=== PATIENT | female | born 1990 | race Caucasian/White ===

== ENCOUNTER → 2018-02-09 19:13 | Observation (INO) ==
[2018-02-09 18:48] LABS: Amphetamine Screen,Urine Negative ng/mL (Cutoff=1000); Barbiturate Screen,Urine Negative ng/mL (Cutoff=200); Benzodiazepines Screen,Urine Negative ng/mL (Cutoff=200); Cannabinoid Screen,Urine Negative ng/mL (Cutoff = 50); Cocaine Screen,Urine Negative ng/mL (Cutoff= 300); Opiate Screen,Urine Negative ng/mL (Cutoff=300); Phencyclidine Screen,Urine Negative ng/mL (Cutoff=25)
--- NOTE | 2018-02-09 19:05 | OB/GYN Progress Note ---
Date of Encounter: 02/09/18 Time of Encounter: 19:03 - Assessment and Plan (1) 38 weeks gestation of Current Visit: Yes Status: Acute NST reactive (2) False labor Current Visit: Yes Status: Acute SVE . Repeat SVE unchanged. Discharge home with precautions. Subjective - Subjective Principal diagnosis: contractions Interval history: 27 year-old G1 presenting at 38w5d with c/o contractions. She denies LOF or heavy VB. She does report some spotting prior to her arrival to triage but she did have an SVE yesterday at her OB appt. Good FM. No other complaints. Objective - Vital Signs Vital Signs: Intake and Output 02/09/18 02/09/18 02/09/18 07:59 15:59 23:59 Other: Weight 87.5 kg Patient Weight 02/09/18 23:59 Weight 87.5 kg - Exam FHR: category 1 FHR comments: NST reactive Auscultation: bilateral: normal Abdomen: Present: soft, gravid Uterus: Absent: tenderness Cervical dilation: per RN, repeat unchanged
== END | disposition home or self-care (01) ==
LOC: 1NENULAB
PROVIDERS: ADMIT Registered Nurse; ATTEND Registered Nurse

== ENCOUNTER 2018-02-11 20:31 | Inpatient (IN) ==
[~2018-02-11 20:31] MED LIST: *HR* Nalbuphine 10 MG/ML AMPUL IVP PRN; Famotidine 20 MG/2 ML VIAL IVP PRN; Naloxone 0.4 MG/ML INJ IVP PRN; Ondansetron 4 MG/2 ML VIAL IVP PRN
[2018-02-11] MEDS ORDERED: Oxytocin 20 units/ LR 1000 mL 20 UNIT/1,000 ML BAG IVC SCH (20:45)
--- NOTE | 2018-02-11 20:52 | OB/GYN History & Physical ---
Date of Encounter: 02/11/18 Time of Encounter: 20:50 Assessment and Plan (1) 39 weeks gestation of Current visit: Yes Status: Acute (2) SROM (spontaneous rupture of membranes) Current visit: Yes Status: Acute Admit to labor and delivery Nubain and epidural as desired GBS negative If no cervical change in 2 hours start Pitocin per policy Anticipate History of Present Illness Chief complaint: SROM HPI: Ms. Duckworth is a 27 year old female 39+0 weeks gestation presents to triage with complaints of spontaneous rupture membranes at 1300. Patient states has been leaking clear fluid since rupture, reports good movement, denies vaginal bleeding, occasional contractions last checked labor 7 minutes apart. care with Dr[address] Kelley, uncomplicated course. Labs: O+, rubella and varicella immune, GBS negative, all other serologies negative Past Med Surg Social Fam HX - Past Medical History Medical history: no medical history Psychiatric history: no psych history - Past Surgical History Surgical History: no surgical history - Social History Smoking Status: Never smoker Alcohol use: none Drug use: none - Family History Mother Adopted: No Living Status: Still Living Hx Family Endocrine Disorder: Yes ("thyroid issues") Obstetrical History - Pregnancies : 1 Para: 0 Term: 0 : 0 Ab's: 0 Livin Medications and Allergies Vit Calc,Iron,Folic [ Vitamins] 1 tab PO DAILY 02/09/18 [ History] 3 Allergy/AdvReac Type Severity Reaction Status Date / Time No Known Allergies Allergy Verified 02/11/18 20:55 Exam - Constitutional Constitutional: well developed, well nourished, no acute distress, average body habitus - Neck Neck exam: full ROM - Lungs Respiratory exam: CTAB - Cardiovascular Cardiovascular exam: RRR - Abdomen Abdomen: Present: bowel sounds normal, gravid, non tender - Extremities Extremities exam: normal capillary refill, normal inspection - Vagina Vagina: Present: normal moisture - Cervix Dilation: 4 Effacement: 90 Station: -1 - Uterus Uterus exam: Present: normal size, normal contour - Anus/Rectum Anus/Rectum: Present: normal perianal skin Results Result Diagrams: 02/11/18 21:05 All other labs normal. - VTE Reasons for not Prescribing Prophylaxis: Treatment not Indicated - Low risk for VTE
[2018-02-11 21:41] LABS: Basophils % 0.3 %; Eosinophils # 0.1 K/mcL (0.0-0.6); Eosinophils % 1.2 %; Hematocrit 33.4 % (35.3-44.9); Hemoglobin 11.4 g/dL (11.5-15.4); Lymphocytes # 1.9 K/mcL (0.6-4.6); Lymphocytes % 18.5 %; Mean Corpuscular HGB Conc 34.1 g/dL (31.6-35.5); Mean Corpuscular Hemoglobin 29.8 pg (28.0-33.3); Mean Corpuscular Volume 87.2 fL (83.0-100.0); Mean Platelet Volume 10.7 fL (9.4-12.4); Monocytes # 0.8 K/mcL (0.0-1.3); Monocytes % 8.1 %; Neutrophils # 7.2 K/mcL (1.6-8.9); Platelet Count 205 K/mcL (140-400); Red Blood Count 3.83 M/mcL (3.82-4.97); Red Cell Distribution Width 13.4 % (11.5-14.5); Segmented Neutrophils % 70.9 %
--- NOTE | 2018-02-11 21:48 | Anesthesia Evaluation PreOp ---
Date of Encounter: 02/11/18 Time of Encounter: 21:46 - Past History Planned Operation: david Cardiac History: Denies any Significant Hx Pulmonary History: Denies Any Significant HX FICTION WRITER History: Denies Any Significant HX Other Medical History: GERD Anesthesia History: No Prior Anesthetic Complications : Yes Test: Positive Alcohol Use: none Drug use: none Medications and Allergies Vit Calc,Iron,Folic [ Vitamins] 1 tab PO DAILY 02/09/18 [ History] 3 Allergy/AdvReac Type Severity Reaction Status Date / Time No Known Allergies Allergy Verified 02/11/18 20:55 - Meds/Allergy Pre-op Review Medications Reviewed: Yes Allergies Reviewed: Yes Beta Blockers on Current Med List: No Anesthesia Results - Labs 02/11/18 21:05 Anesthesia Exam 131/77 90 16 fht 155 Height: 5'3" Weight: 191 NPO (# of Hours): 4 Pain Scale: 3 Pain Scale Used: Numeric (1 - 10) - HEENT Pupil (Motor): Pupils equal Mallampati: II Teeth: Normal Oral Opening: Greater than 3 - FICTION WRITER LOC: Oriented FICTION WRITER Motor: Normal RUE, Normal LUE, Normal RLE, Normal LLE, Normal Face FICTION WRITER Sensory: Normal: RUE, LUE, RLE, LLE, Face - Cardiac Rhythm: Regular Murmur: None - Pulmonary Breath Sounds: bilateral Clear Respiratory Effort: Symmetrical Anesthesia Assess/Plan ASA Score: 2 Modified Anushka Scale for Level of Consciousness: Cooperative, oriented, and tranquil Anesthetic Plan: Regional Autologous Blood: No Monitoring Plan: Standard Monitors Recovery Plan: Other (risks discussed, questions answered, consented)
[2018-02-11] MEDS ORDERED: Metoclopramide 10 MG/2 ML VIAL IVP PRN (22:13)
[2018-02-11 22:38] LABS: Amphetamine Screen,Urine Negative ng/mL (Cutoff=1000); Barbiturate Screen,Urine Negative ng/mL (Cutoff=200); Benzodiazepines Screen,Urine Negative ng/mL (Cutoff=200); Cannabinoid Screen,Urine Negative ng/mL (Cutoff = 50); Cocaine Screen,Urine Negative ng/mL (Cutoff= 300); Opiate Screen,Urine Negative ng/mL (Cutoff=300); Phencyclidine Screen,Urine Negative ng/mL (Cutoff=25)
[2018-02-11] MEDS: Ringers Solution, Lactated 1,000 ML IVC SCH (23:13)
[2018-02-12] MEDS ORDERED: *HR* FentaNYL (PF) 100 MCG/2 ML VIAL EP ONE (06:26)
[2018-02-12] MEDS ORDERED: Epidural Premix (fent/bupiv) 110 ML EP SCH (06:30)
[2018-02-12] MEDS ORDERED: *HR* FentaNYL (PF) 100 MCG/2 ML VIAL ONE (06:32)
[2018-02-12] MEDS ORDERED: Epidural Premix (fent/bupiv) 110 ML EP ONE (06:33)
--- NOTE | 2018-02-12 06:43 | OB Labor Progress Note ---
Date of Encounter: 02/12/18 Time of Encounter: 06:22 Labor Progress Note - Subjective Subjective: Pt feeling more uncomfortable with contractions, desires epidural - Cervix Cervix: 5/90/-1 - Heart Tones Heart Tones: 130/moderate/+accels/Variable - [place]: q1-3 - Interventions Interventions: cerivcal exam shows tight forebag, attempted to rupture. - Plan Plan: Continue pitocin per policy Frequent repositioning Anticpate
--- NOTE | 2018-02-12 07:01 | Anesthesia Procedures ---
Date of Encounter: 02/12/18 Time of Encounter: 06:58 Procedures: Anesthesia - Epidural/Spinal Patient ID/Chart reviewed: Yes Patient examined: Yes OB Eval: Gestational age: 39 OB Eval: : 1 OB Eval: Hx Para: 0 OB Eval: Dilated at (cm): 5 OB Eval: Contractions: Non-stressed pattern Consent Obtained: Yes Supplemental Oxygen: None/Room Air Site Prep: Aseptic Technique, Sterile prep and drape, Povidone-Iodine 1% Patient position: upright Local Anesthetic: Lidocaine 1% Amount of Local Anesthetic used: 3 Touhy Needle Gauge: 18 Touhy Needle Depth (cm): 8 Catheter Depth at Skin (cm): 15 Test Dose (1.5% Lido + Epi): Volume given (mls): 3 Test Dose Result: Negative Loading Dose: Fentanyl (mcg): 100 Loading Dose: Other: rop 0.2% 10cc Loading Dose Administered: Thru Touhy Needle Infusion Med: 0.125% Bupivacaine w/ 2 mcg/ml Fentanyl Infusion Rate (mls/hr): [address]: Tegaderm Interspace Used: L2-L3 Loss of Resistance ([place]): Yes Blood: No CSF: No Paresthesia: No Procedure: aseptic tech , tolerated well, effective
[2018-02-12] MEDS ORDERED: Penicillin G Potassium 5,000,000 UNIT in 0.9 % Sodium Chloride Mini Bag 100 ML IVPB ONE (07:39)
[2018-02-12] MEDS: Ringers Solution, Lactated 1,000 ML IVC SCH (07:54)
--- NOTE | 2018-02-12 10:19 | OB Labor Progress Note ---
Date of Encounter: 02/12/18 Time of Encounter: 10:16 Labor Progress Note - Subjective Subjective: Pain well controlled with epidural. Patient states she is not feeling any pressure at all. - Cervix Cervix: 10/100/+2 - Heart Tones Heart Tones: Baseline 135 Moderate variability Accelerations present 15 x 15 Few decelerations-early and variable FHR category I - [place]: Contractions every 2-2-1/2 minutes and palpate strong - Interventions Interventions: IGNACIO Jaime sit - Plan Plan: Continue expectant management Labor down 1 hour Anticipate vaginal delivery Dr. Vasquez is OB director of labor relations and is available as needed
[2018-02-12] MEDS ORDERED: Penicillin G Potassium 2,500,000 UNIT in 0.9 % Sodium Chloride 100 ML IVPB SCH (12:00)
--- NOTE | 2018-02-12 12:51 | OB/GYN Procedure Note ---
Delivery - Delivery Date: 02/12/18 Provider: Pao Nation Intrapartum events: none Delivery induction: none Delivery augmentation: pitocin Delivery monitor: external FHT, external uterine Anesthesia: epidural Quantitated Blood Loss: 200 - (s) Infant A Delivery Date: 02/12/18 Delivery Time: 11:48 Presentation: vertex Position: GEE Route of delivery: Gender: Male Viability: Viable Pounds: 7 Ounces: 7 Weight Gram: 3.38 kg at 1 minute: 8 at 5 mins: 9 Shoulder Dystocia: not encountered Specimens collected: cord blood Placenta: spontaneous Cord: nuchal cord, 3 umbilical vessels, nuchal reduced - Repair Episiotomy: none Laceration Description: Perineal - 3rd Degree, Labial (Bilateral) - Complications Delivery complications: none Delivery comments: Ms. Duckworth is a 27-year-old G1 now P1 who was admitted for spontaneous rupture of membranes. She progressed with Pitocin augmentation to the second stage of labor. She pushed for about 20 minutes. She delivered a viable male infant, GEE, over a partial fourth degree tear. The was placed on the maternal abdomen and allowed to transition independently. A nuchal cord 1 was identified. The nuchal cord was reduced prior to delivery of the shoulders AND body. No shoulder dystocia was encountered. scores were 8 at 1 minute and 9 at 5 minutes. The infant weighed 7 lbs. 7 oz. The placenta delivered spontaneously ([place]), intact, with a three-vessel cord. Inspection revealed bilateral labial lacerations along with a likely third degree perineal laceration. At the time of identifying the laceration, Dr. Vasquez was called to the bedside to assist with repair. The lacerations were repaired by Dr. Vasquez under epidural anesthesia. The uterus was firm with no active bleeding. EBL was 200 mL. Placenta and umbilical artery blood gas were not sent. There were no complications during the procedure. Mom and baby are both stable in the delivery room. - Disposition Mom disposition: stable in LDR disposition: stable in LDR
[2018-02-12] MEDS ORDERED: Acetaminophen 325 MG TABLET PO PRN (14:30)
[2018-02-12] MEDS ORDERED: Oxytocin 20 units/ LR 1000 mL 20 UNIT/1,000 ML BAG IVC SCH (14:30)
[2018-02-12] MEDS ORDERED: Benzocaine/Menthol 56 GM AEROSOL SPRAY TP PRN (15:32)
[2018-02-12] MEDS ORDERED: Ondansetron 4 MG/2 ML VIAL IVP PRN (15:49)
[2018-02-12] MEDS: *HR* HYDROcodone/Acet 5/325 mg TABLET PO PRN ×2 (16:33→21:29)
[2018-02-12] MEDS: Ibuprofen 600 MG TABLET PO PRN (19:20)
[2018-02-13] MEDS: Ibuprofen 600 MG TABLET PO PRN ×5 (02:01→19:38)
[2018-02-13 06:04] LABS: Basophils % 0.2 %; Eosinophils # 0.1 K/mcL (0.0-0.6); Eosinophils % 1.4 %; Hematocrit 25.6 % (35.3-44.9); Immature Granulocytes % 0.8 % (0-4); Lymphocytes # 1.7 K/mcL (0.6-4.6); Lymphocytes % 16.9 %; Mean Corpuscular HGB Conc 34.4 g/dL (31.6-35.5); Mean Corpuscular Hemoglobin 30.1 pg (28.0-33.3); Mean Corpuscular Volume 87.7 fL (83.0-100.0); Mean Platelet Volume 10.8 fL (9.4-12.4); Monocytes # 0.9 K/mcL (0.0-1.3); Monocytes % 9.1 %; Neutrophils # 7.3 K/mcL (1.6-8.9); Platelet Count 154 K/mcL (140-400); Red Blood Count 2.92 M/mcL (3.82-4.97); Red Cell Distribution Width 13.6 % (11.5-14.5); Segmented Neutrophils % 71.6 %
[2018-02-13 06:12] LABS: Hemoglobin 8.8 g/dL (11.5-15.4)
[2018-02-13] MEDS ORDERED: Prenatal Vit/FA 1 EACH TABLET PO SCH (09:00)
--- NOTE | 2018-02-13 10:00 | OB/GYN Progress Note ---
Date of Encounter: 02/13/18 Time of Encounter: 09:58 - Assessment and Plan (1) Vaginal delivery Current Visit: Yes Status: Acute continue routine care (2) Fourth degree perineal laceration during delivery Current Visit: Yes Status: Acute Partial fourth degree repair Continue pain interventions Continue colace daily and encourage water intake (3) Breast feeding status of mother Current Visit: Yes Status: Acute lactations support prn Subjective - Subjective Principal diagnosis: day 1 partial 4th degree laceration Interval history: Patient resting in bed. Patient reports increase in pain in her perineum following shower. Patient encouraged to use Ice packs, tucks and sitz baths prn. Patient denies BM, feeling dizzy or lightheaded with ambulation. Patient is breast feeding. Infant in nursery for circumcision. Patient reports: appetite normal, voiding normally, ambulating normally : doing well, nursing well Objective - Latest Vital Signs Latest vital signs: Vital Signs Temp Pulse Resp BP Pulse Ox 02/13/18 08:00 97.8 F 85 16 107/71 02/13/18 04:00 97.9 F 81 18 104/61 97 02/12/18 19:20 97.6 F 97 16 119/71 99 02/12/18 17:33 98.1 F 92 16 99/59 98 02/12/18 16:33 98.0 F 108 16 116/72 02/12/18 15:32 97.9 F 85 16 118/75 98 Intake and Output 02/12/18 02/13/18 02/13/18 23:59 07:59 15:59 Intake Total 350 / 350 Output Total 1250 / 1250 450 / 450 Balance -1250 / -1250 -100 / -100 Intake: Oral 350 / 350 Output: Urine 1250 / 1250 450 / 450 Other: Weight 83.325 kg Patient Weight 02/13/18 23:59 Weight 83.325 kg - Exam Lungs: bilateral: normal Chest: Normal S1, Normal S2 Extremities: Present: normal Abdomen: Present: normal appearance, soft, gravid Uterus: Present: normal, firm Uterus Position: 1 Finger Below Umbilicus, Midline - Labs Labs: Laboratory Results - last 24 hr 02/13/18 05:41 WBC 10.2 RBC 2.92 L Hgb 8.8 L D Hct 25.6 L MCV 87.7 MCH 30.1 MCHC 34.4 RDW 13.6 Plt Count 154 MPV 10.8 Immature Gran % 0.8 Seg Neutrophils % 71.6 Lymphocytes % 16.9 Monocytes % 9.1 Eosinophils % 1.4 Basophils % 0.2 Neutrophils # 7.3 Lymphocytes # 1.7 Monocytes # 0.9 Eosinophils # 0.1 Basophils # 0.0
[2018-02-13] MEDS: *HR* HYDROcodone/Acet 5/325 mg TABLET PO PRN ×3 (10:01→23:58)
[2018-02-14] MEDS: Ibuprofen 600 MG TABLET PO PRN (03:08)
[2018-02-14] MEDS: *HR* HYDROcodone/Acet 5/325 mg TABLET PO PRN (08:38)
[2018-02-14 09:10] VITALS: BP 104/68
--- NOTE | 2018-02-14 09:57 | Discharge Summary ---
Date of Encounter: 02/14/18 Time of Encounter: 09:55 - Discharge Diagnosis (1) Breast feeding status of mother Priority: Secondary Status: Acute Comments: breastpump rx given. Pt has seen development consultant multiple times. (2) Fourth degree perineal laceration during delivery Priority: Secondary Status: Acute Comments: Discharge home with sitz bath and bowel regimen. (3) Vaginal delivery Priority: Primary Status: Acute Comments: Pt meeting all milestones. - Discharge Medications Prescriptions: HYDROcodone/Acet 5/325 mg [[place] 5-325 mg] 1 tab PO Q6HR PRN 5 Days #20 tablet PRN Reason: Moderate Pain (4-6) Ibuprofen [Motrin] 600 mg PO Q6HR PRN #60 tablet PRN Reason: Cramping Breast Pump [BREAST PUMP] 1 each .ROUTE AD #1 each Docusate [Colace] 100 mg PO BID #120 capsule Home Medications: Vit Calc,Iron,Folic [ Vitamins] 1 tab PO DAILY 02/09/18 [ History] Benzocaine/Menthol [place] [Dermoplast [place]] 1 appl TP QID PRN aerosol 02/14/18 [Rx] Breast Pump [BREAST PUMP] 1 each .ROUTE AD #1 each 02/14/18 [Rx] Docusate [Colace] 100 mg PO BID #120 capsule 02/14/18 [Rx] HYDROcodone/Acet 5/325 mg [[place] 5-325 mg] 1 tab PO Q6HR PRN 5 Days #20 tablet 02/14/18 [Rx] Hydrocortisone 1% CREAM [Cortaid] 1 appl TP BID PRN bottle 02/14/18 [Rx] Ibuprofen [Motrin] 600 mg PO Q6HR PRN #60 tablet 02/14/18 [Rx] Allergies/Adverse Reactions: 3 Allergy/AdvReac Type Severity Reaction Status Date / Time No Known Allergies Allergy Verified 02/11/18 20:55 Data Procedures and tests throughout hospitalization: Laboratory Tests 02/11/18 02/11/18 02/13/18 21:05 22:12 05:41 WBC 10.2 10.2 RBC 3.83 2.92 L Hgb 11.4 L 8.8 L D Hct 33.4 L 25.6 L MCV 87.2 87.7 MCH 29.8 30.1 MCHC 34.1 34.4 RDW 13.4 13.6 Plt Count 205 154 MPV 10.7 10.8 Immature Gran % 1.0 0.8 Seg Neutrophils % 70.9 71.6 Lymphocytes % 18.5 16.9 Monocytes % 8.1 9.1 Eosinophils % 1.2 1.4 Basophils % 0.3 0.2 Neutrophils # 7.2 7.3 Lymphocytes # 1.9 1.7 Monocytes # 0.8 0.9 Eosinophils # 0.1 0.1 Basophils # 0.0 0.0 Urine Opiates Screen Negative Ur Barbiturates Screen Negative Ur Phencyclidine Scrn Negative Ur Amphetamines Screen Negative U Benzodiazepines Scrn Negative Urine Cocaine Screen Negative U Marijuana (THC) Screen Negative Date of admission: 02/11/18 20:31 Primary care physician: Brooke Russ, Consults: 02/12/18 14:30 Consult to Bdr [CONS] Routine Comment: Vaginal delivery, consult needed Discharging clinician: Benita Black Anticipated date of discharge: 02/14/18 - Patient Status Disposition: Home, Self-Care Condition: Good Functional capacity at discharge: independent ambulation Overall status at discharge: patient is progressing back to baseline - Discharge Instructions Instructions: Vaginal Delivery (DC) Follow Up With: Brooke Russ MD [Primary Care Provider] - Jennifer Kelley MD [Partnered Physician] - 03/13/18 9:00 am - Diet and Activity Activity: increase activity as tolerated Diet: regular diet Hospital Course Reason for admission: active labor Delivery: Episiotomy: none Laceration: 3rd degree, 4th degree (partial) Other procedures: none complications: none Discharge diagnosis: IUP at term delivered baby: male Hospital course: - Delivery Date: 02/12/18 Provider: Pao Nation Intrapartum events: none Delivery induction: none Delivery augmentation: pitocin Delivery monitor: external FHT, external uterine Anesthesia: epidural Quantitated Blood Loss: 200 - (s) A Infant Delivery Date: 02/12/18 Delivery Time: 11:48 Presentation: vertex Position: GEE Route of delivery: Gender: Male Viability: Viable Pounds: 7 Ounces: 7 Weight Gram: 3.38 kg at 1 minute: 8 at 5 mins: 9 Shoulder Dystocia: not encountered Specimens collected: cord blood Placenta: spontaneous Cord: nuchal cord, 3 umbilical vessels, nuchal reduced - Repair Episiotomy: none Laceration Description: Perineal - partial 4th Degree, Labial (Bilateral) - Complications Delivery complications: none - Disposition Mom disposition: home PPD2 disposition: home with mother, Time Attestation: Total time spent providing and/or coordinating discharge services: Time Spent: Less than 30 minutes Exam - Constitutional Vitals: Temp Pulse Resp BP Pulse Ox 98.1 F 76 12 104/68 96 02/14/18 08:00 02/14/18 08:00 02/14/18 08:00 02/14/18 08:00 02/14/18 08:00 General appearance IM: A&O X 3, no acute distress - Respiratory Respiratory exam: Present: CTAB - Cardiovascular Cardiovascular exam IM: Present: RRR, +S1, +S2 - GI/Abdominal GI/Abdominal exam IM: soft - External exam: normal external exam Uterine Tone: Firm Uterus Position: 2 Fingers Below Umbilicus - Extremities Exam Extremities exam IM: Present: pedal edema (mild bilaterally) - Neurological Exam Neurological exam: normal gait, oriented X3 - Psychiatric Additional comments: reports good mood
== END 2018-02-14 13:14 | disposition home or self-care (01) | DRG 775 ==
LOC: 1NENULAB → 1NENUOBS 02-12 15:31
PROVIDERS: ADMIT Advanced Practice Midwife; ATTEND Advanced Practice Midwife

== ENCOUNTER 2020-11-25 21:11 | Observation (INO) ==
[2020-11-25] MEDS ORDERED: Ringers Solution, Lactated 1,000 ML IVC ONE (21:56)
[2020-11-25] MEDS ORDERED: Ringers Solution, Lactated 1,000 ML ONE (21:58)
[2020-11-25 22:13] LABS: Basophils % 0.3 %; Eosinophils # 0.1 K/mcL (0.0-0.6); Eosinophils % 0.6 %; Hematocrit 39.1 % (35.3-44.9); Hemoglobin 13.2 g/dL (11.5-15.4); Immature Granulocytes % 0.9 % (0-4); Lymphocytes # 1.7 K/mcL (0.6-4.6); Lymphocytes % 15.7 %; Mean Corpuscular HGB Conc 33.8 g/dL (31.6-35.5); Mean Corpuscular Hemoglobin 30.7 pg (28.0-33.3); Mean Corpuscular Volume 90.9 fL (83.0-100.0); Mean Platelet Volume 10.2 fL (9.4-12.4); Monocytes # 0.5 K/mcL (0.0-1.3); Monocytes % 4.6 %; Neutrophils # 8.5 K/mcL (1.6-8.9); Platelet Count 246 K/mcL (140-400); Red Cell Distribution Width 12.9 % (11.5-14.5); Segmented Neutrophils % 77.9 %; White Blood Count 10.9 K/mcL (4.3-11.1)
[2020-11-25] MEDS ORDERED: *HR* HYDROmorphone (PF) 1 MG/ML SYRINGE IVP ONE (23:36)
[2020-11-26] MEDS: *HR* HYDROcodone/Acet 5/325 mg TABLET PO PRN ×3 (00:02→08:41)
[2020-11-26] MEDS ORDERED: *HR* HYDROmorphone (PF) 1 MG/ML SYRINGE IVP STA (08:40)
[2020-11-26] MEDS ORDERED: Ondansetron ODT 4 MG TAB.RAPDIS SL PRN (08:40)
== END 2020-11-26 10:05 | disposition home or self-care (01) ==
LOC: 1NENULAB
PROVIDERS: ADMIT Registered Nurse; ATTEND Registered Nurse

== ENCOUNTER 2021-03-03 08:00 | Inpatient (IN) ==
[2021-03-03] MEDS ORDERED: CeFAZolin 2,000 MG/50 ML BAG IVPB ONE (08:24)
[2021-03-03] MEDS ORDERED: Ringers Solution, Lactated 1,000 ML IVC ONE (08:24)
[2021-03-03] MEDS ORDERED: Famotidine 20 MG/2 ML VIAL IVP ONE (08:24)
[2021-03-03] MEDS ORDERED: Metoclopramide 10 MG/2 ML VIAL IVP ONE (08:24)
[2021-03-03] MEDS ORDERED: Ringers Solution, Lactated 1,000 ML IVC SCH (08:30)
[2021-03-03] MEDS ORDERED: Ringers Solution, Lactated 2,000 ML ONE (08:40)
[2021-03-03 09:17] LABS: Basophils % 0.4 %; Eosinophils # 0.1 K/mcL (0.0-0.6); Eosinophils % 0.8 %; Hemoglobin 12.2 g/dL (11.5-15.4); Lymphocytes # 1.8 K/mcL (0.6-4.6); Lymphocytes % 21.5 %; Mean Corpuscular Hemoglobin 29.1 pg (28.0-33.3); Mean Corpuscular Volume 88.3 fL (83.0-100.0); Mean Platelet Volume 11.2 fL (9.4-12.4); Monocytes # 0.5 K/mcL (0.0-1.3); Monocytes % 6.1 %; Neutrophils # 5.9 K/mcL (1.6-8.9); Platelet Count 164 K/mcL (140-400); Red Blood Count 4.19 M/mcL (3.82-4.97); Segmented Neutrophils % 70.2 %; White Blood Count 8.4 K/mcL (4.3-11.1)
[2021-03-03] MEDS ORDERED: *HR* OxyCODONE Immed Rel 5 MG TABLET PO PRN (09:33)
[2021-03-03] MEDS ORDERED: *HR* Nalbuphine 10 MG/ML AMPUL IV PRN (09:35)
[2021-03-03] MEDS ORDERED: *HR* FentaNYL (PF) 100 MCG/2 ML VIAL ONE (10:25)
[2021-03-03] MEDS ORDERED: *HR* Morphine Sulfate/PF 10 MG/10 ML AMPUL ONE (10:25)
[2021-03-03] MEDS ORDERED: Ondansetron 4 MG/2 ML VIAL ONE (10:38)
[2021-03-03 11:00] LABS: Amphetamine Screen,Urine Negative ng/mL (Cutoff=1000); Barbiturate Screen,Urine Negative ng/mL (Cutoff=200); Benzodiazepines Screen,Urine Negative ng/mL (Cutoff=200); Cannabinoid Screen,Urine Negative ng/mL (Cutoff = 50); Cocaine Screen,Urine Negative ng/mL (Cutoff= 300); Opiate Screen,Urine Negative ng/mL (Cutoff=300); Phencyclidine Screen,Urine Negative ng/mL (Cutoff=25)
[2021-03-03] MEDS ORDERED: Acetaminophen IV 1,000 MG/100 ML BAG IVPB ONE (11:05)
[2021-03-03] MEDS ORDERED: Ketorolac 30 MG/ML VIAL ONE (11:06)
[2021-03-03] MEDS ORDERED: *HR* FentaNYL (PF) 100 MCG/2 ML VIAL IVP ONE (13:53)
[2021-03-03] MEDS ORDERED: Ondansetron 4 MG/2 ML VIAL IVP PRN (14:37)
[2021-03-03] MEDS ORDERED: Metoclopramide 10 MG/2 ML VIAL IVP PRN (14:37)
[2021-03-03] MEDS ORDERED: *HR* OxyCODONE/APAP 5/325 TABLET PO PRN (14:37)
[2021-03-03] MEDS ORDERED: Oxytocin 20 units/ LR 1000 mL 20 UNIT/1,000 ML BAG IVC SCH (14:37)
[2021-03-03] MEDS: Simethicone 80 MG TAB.CHEW PO SCH ×2 (15:39→21:19)
[2021-03-03] MEDS: Acetaminophen 325 MG TABLET PO SCH ×2 (18:44→21:19)
[2021-03-03] MEDS: Ketorolac 30 MG/ML VIAL IVP SCH ×2 (18:45→21:21)
[2021-03-04] MEDS ORDERED: Ketorolac 30 MG/ML VIAL IVP SCH (03:00)
[2021-03-04 04:56] LABS: Basophils % 0.4 %; Eosinophils # 0.1 K/mcL (0.0-0.6); Eosinophils % 1.2 %; Hematocrit 31.9 % (35.3-44.9); Hemoglobin 10.7 g/dL (11.5-15.4); Immature Granulocytes % 0.7 % (0-4); Lymphocytes # 1.5 K/mcL (0.6-4.6); Lymphocytes % 19.5 %; Mean Corpuscular HGB Conc 33.5 g/dL (31.6-35.5); Mean Corpuscular Hemoglobin 30.1 pg (28.0-33.3); Mean Corpuscular Volume 89.6 fL (83.0-100.0); Mean Platelet Volume 11.2 fL (9.4-12.4); Monocytes # 0.6 K/mcL (0.0-1.3); Monocytes % 7.6 %; Neutrophils # 5.4 K/mcL (1.6-8.9); Platelet Count 130 K/mcL (140-400); Red Blood Count 3.56 M/mcL (3.82-4.97); Red Cell Distribution Width 13.9 % (11.5-14.5); Segmented Neutrophils % 70.6 %; White Blood Count 7.7 K/mcL (4.3-11.1)
[2021-03-04] MEDS: Acetaminophen 325 MG TABLET PO SCH ×2 (06:24→13:46)
[2021-03-04 07:17] VITALS: BP 110/70
[2021-03-04] MEDS: Simethicone 80 MG TAB.CHEW PO SCH ×2 (08:06→14:28)
[2021-03-04] MEDS: Ibuprofen 600 MG TABLET PO SCH ×2 (08:06→14:28)
[2021-03-04] MEDS ORDERED: Prenatal Vit/FA 1 EACH TABLET PO SCH (09:00)
[2021-03-04] MEDS ORDERED: *HR* HYDROcodone/Acet 5/325 mg TABLET PO PRN (09:25)
== END 2021-03-04 17:16 | disposition home or self-care (01) | DRG 785 ==
LOC: 1NENULAB 08:00 → 1NENUOBS 14:31
PROVIDERS: ADMIT Obstetrics & Gynecology; ATTEND Obstetrics & Gynecology